=== PATIENT | male | born 1965 | race African-American/Black ===

== ENCOUNTER 2018-04-04 18:20 | Emergency (ER) | payer BC, SELFPAY ==
[2018-04-04 18:52] LABS: Absolute Lymphocytes (CBC) 1.9 K/uL (0.7-4.9); Absolute Monocytes 0.5 K/uL (0.1-1.3); Absolute Neutrophil 3.1 K/uL (1.8-8.0); Basophils % 0.7 % (0-1.3); Eosinophils % 1.1 % (0-4.4); Hematocrit 47.1 % (39.6-49.0); Lymphocytes % 34.5 % (15.3-44.8); MCH 29.7 pg (27.0-35.0); MCV 87.3 fL (80-100); MPV 9.1 fL (7.6-11.3); Monocytes % 8.7 % (3.3-12.3)
[2018-04-04 19:17] LABS: ALT/SGPT 55 U/L (12-78); AST/SGOT 34 U/L (15-37); Albumin 4.2 g/dL (3.4-5.0); Alkaline Phosphatase 38 U/L (45-117); BUN Blood Urea Nitrogen 13 mg/dL (7-18); Bicarbonate 27 mmol/L (21-32); Bilirubin Direct 0.2 mg/dL (0-0.2); Bilirubin Total 0.7 mg/dL (0.2-1.0); Glucose Level 121 mg/dL (74-106); Magnesium 2.1 mg/dL (1.8-2.4); NT PRO-BNP 12 pg/mL (<125); Potassium 3.6 mmol/L (3.5-5.1); Protein, Total 8.1 g/dL (6.4-8.2); Sodium Level 137 mmol/L (136-145); Troponin (Emerg Dept Use Only) < 0.02 ng/mL (0.0-0.045)
[2018-04-04 19:20] LABS: Protime INR 1.07
--- NOTE | 2018-04-04 19:35 | RAD REPORT ---
EXAM DESCRIPTION: Nino Single View04/04/2018 7:21 pm CLINICAL HISTORY: Chest pain COMPARISON: 2013 FINDINGS: The lungs appear clear of acute infiltrate. The heart is probably upper limits normal siz e IMPRESSION: No acute abnormalities displayed
[2018-04-04] MEDS ORDERED: NA CHLORIDE 0.9% 1,000 ML ONE (19:39)
[2018-04-04 19:55] LABS: Urine Bacteria <20 /HPF (NONE SEEN); Urine Culture Reflex Order NOT NEEDED; Urine RBC <5 /HPF (NONE SEEN)
[2018-04-04 20:27] LABS: Urine Blood NEGATIVE (NEG); Urine Glucose NEGATIVE (NEG); Urine Protein TRACE (NEG); Urine Specific Gravity >1.030 (1.005-1.030)
--- NOTE | 2018-04-04 22:18 | EDPHYS ---
Physician Documentation [facility] Name: Andrea Longo Jr Age: 53 yrs Sex: Male : 1965 Arrival Date: 04/04/2018 Time: 18:21 Bed 19 Private MD: ED Physician Amauri Henrandez HPI: 04/04 19:38 This 53 yrs old Black Male presents to ER via Wheelchair with complaints of Shortness snw Of Breath, Chest Pain. 19:38 The patient has shortness of breath at rest. Onset: The symptoms/episode began/occurred snw suddenly, 1 day(s) ago, and became persistent. Duration: The symptoms are intermittent. The patient's shortness of breath has no apparent modifying factors. Associated signs and symptoms: Pertinent positives: chest pain, non-productive cough, abdominal pain, dark urine, one episode of penile discharge. Severity of symptoms: At their worst the symptoms were moderate. It is unknown whether or not the patient has had similar symptoms in the past. The patient has not recently seen a physician, sees PCP in [place]. Historical: - Allergies: 18:29 No Known Allergies; sv - Home Meds: 18:29 Janumet oral oral [Active]; amlodipine/besylate [Active]; losartan potassium [Active]; sv metoprolol ER [Active]; atorvastatin oral oral [Active]; gabapentin oral oral [Active]; Glimepiride Oral [Active]; - PMHx: 18:29 Diabetes - NIDDM; High Cholesterol; Hypertension; sv - Immunization history:: Flu vaccine is up to date. - Social history:: Smoking status: Patient/guardian denies using tobacco. - Ebola Screening: : No symptoms or risks identified at this time. ROS: 19:36 Constitutional: Negative for fever, chills, and weight loss, Eyes: Negative for injury, snw pain, redness, and discharge, ENT: Negative for injury, pain, and discharge, Neck: Negative for injury, pain, and swelling. 19:36 Respiratory: Negative for shortness of breath, cough, wheezing, and pleuritic chest pain. 19:36 Back: Negative for injury and pain, : Negative for injury, bleeding, discharge, and swelling, dark urine noted today MS/Extremity: Negative for injury and deformity, Skin: Negative for injury, rash, and discoloration, Neuro: Negative for headache, weakness, numbness, tingling, and seizure. 19:36 Cardiovascular: Positive for chest pain. 19:36 Abdomen/GI: Positive for abdominal pain, last week. Exam: 19:23 Constitutional: This is a well developed, well nourished patient who is awake, alert, snw and in no acute distress. Head/Face: Normocephalic, atraumatic. Eyes: Pupils equal round and reactive to light, extra-ocular motions intact. Lids and lashes normal. Conjunctiva and sclera are non-icteric and not injected. Cornea within normal limits. Periorbital areas with no swelling, redness, or edema. ENT: Nares patent. No nasal discharge, no septal abnormalities noted. Tympanic membranes are normal and external auditory canals are clear. Oropharynx with no redness, swelling, or masses, exudates, or evidence of obstruction, uvula midline. Mucous membranes moist. Neck: Trachea midline, no thyromegaly or masses palpated, and no cervical lymphadenopathy. Supple, full range of motion without nuchal rigidity, or vertebral point tenderness. No Meningismus. Chest/axilla: Normal chest wall appearance and motion. Nontender with no deformity. No lesions are appreciated. Cardiovascular: Regular rate and rhythm with a normal S1 and S2. No gallops, murmurs, or rubs. Normal PMI, no JVD. No pulse deficits. Respiratory: Lungs have equal breath sounds bilaterally, clear to auscultation and percussion. No rales, rhonchi or wheezes noted. No increased work of breathing, no retractions or nasal flaring. Abdomen/GI: Soft, non-tender, with normal bowel sounds. No distension or tympany. No guarding or rebound. No evidence of tenderness throughout. Back: No spinal tenderness. No costovertebral tenderness. Full range of motion. Skin: Warm, dry with normal turgor. Normal color with no rashes, no lesions, and no evidence of cellulitis. MS/ Extremity: Pulses equal, no cyanosis. Neurovascular intact. Full, normal range of motion. Neuro: Awake and alert, GCS 15, oriented to person, place, time, and situation. Cranial nerves II-XII grossly intact. Motor strength 5/5 in all extremities. Sensory grossly intact. Cerebellar exam normal. Normal gait. Vital Signs: 18:22 BP 158 / 95; Pulse 86; Resp 20; Temp 97.8; Pulse Ox 97% ; Weight 120.2 kg; Height 6 ft. sv 1 in. (185.42 cm); Pain 6/10; 19:15 BP 145 / 93; Pulse 82; Resp 16; Temp 97.8(O); Pulse Ox 98% on R/A; Pain 0/10; ls4 20:19 BP 145 / 101; Pulse 81; Resp 16; Pulse Ox 99% on R/A; Pain 0/10; ls4 21:02 BP 143 / 86; Pulse 80; Resp 16; Pulse Ox 99% on R/A; Pain 0/10; ls4 21:53 BP 141 / 72; Pulse 66; Resp 16; Pulse Ox 98% on R/A; Pain 0/10; ls4 22:21 BP 139 / 79; Pulse 70; Resp 16; Temp 97.9(O); Pulse Ox 99% on R/A; Pain 0/10; ls4 18:22 Body Mass Index 34.96 (120.20 kg, 185.42 cm) sv MDM: 19:13 Patient medically screened. snw 22:18 Data reviewed: vital signs, nurses notes. Data interpreted: Pulse oximetry: on room air snw is 98 %. Interpretation: normal. Counseling: I had a detailed discussion with the patient and/or guardian regarding: the historical points, exam findings, and any diagnostic results supporting the discharge/admit diagnosis, the presence of at least one elevated blood pressure reading (>120/80) during this emergency department visit, lab results, radiology results, the need for outpatient follow up, to return to the emergency department if symptoms worsen or persist or if there are any questions or concerns that arise at home. Special discussion: Based on the history and exam findings, there is no indication for further emergent testing or inpatient evaluation. I discussed with the patient/guardian the need to see the primary care provider for further evaluation of the symptoms. 04/04 18:26 Order name: Basic Metabolic Panel; Complete Time: 19:20 gs 04/04 18:26 Order name: CBC with Diff; Complete Time: 19:20 gs 04/04 18:26 Order name: LFT's; Complete Time: 19:20 gs 04/04 18:26 Order name: Magnesium; Complete Time: 19:20 gs 04/04 18:26 Order name: NT PRO-BNP; Complete Time: 19:20 gs 04/04 18:26 Order name: PT-INR; Complete Time: 19:36 gs 04/04 18:26 Order name: Troponin (emerg Dept Use Only); Complete Time: 19:20 gs 04/04 18:26 Order name: XRAY Chest (1 view); Complete Time: 19:39 gs 04/04 19:21 Order name: Urine Culture snw 04/04 19:21 Order name: Urine Microscopic Only; Complete Time: 19:56 snw 04/04 19:40 Order name: Flu; Complete Time: 20:45 snw 04/04 19:55 Order name: Urine Dipstick--Ancillary (enter results); Complete Time: 20:35 ms 04/04 21:10 Order name: Troponin (emerg Dept Use Only): at 2200 snw 04/04 21:10 Order name: Troponin (Emerg Dept Use Only); Complete Time: 22:16 EDMS 04/04 18:26 Order name: EKG; Complete Time: 18:32 gs 04/04 18:26 Order name: Cardiac monitoring; Complete Time: 18:47 gs 04/04 18:26 Order name: EKG - Nurse/Tech; Complete Time: 18:32 gs 04/04 18:26 Order name: IV Saline Lock; Complete Time: 18:47 gs 04/04 18:26 Order name: Labs collected and sent; Complete Time: 18:47 gs 04/04 18:26 Order name: O2 Per Protocol; Complete Time: 18:47 gs 04/04 18:26 Order name: O2 Sat Monitoring; Complete Time: 18:47 gs 04/04 19:21 Order name: Urine Dipstick-Ancillary (obtain specimen); Complete Time: 19:33 snw 04/04 21:10 Order name: EKG - Nurse/Tech: at 2200; Complete Time: 22:01 snw 04/04 21:10 Order name: Repeat Cardiac Enzymes at: at 2200; Complete Time: 21:53 snw Administered Medications: 19:33 Drug: NS 0.9% 1000 ml Route: IV; Rate: 200 ml/hr; Site: right antecubital; ls4 22:22 Follow up: IV Status: Completed infusion; IV Intake: 600ml ls4 Disposition: 04/04/18 22:17 Discharged to Home. Impression: Cough, Chest pain, unspecified. - Condition is Stable. - Discharge Instructions: Nonspecific Chest Pain, Dehydration, Adult, Hypertension, Cough, Adult, [id number], Aspirin and Your Heart, Rehydration, Adult. - Prescriptions for Tessalon Perles 100 mg Oral Capsule - take 1 capsule by ORAL route every 8 hours As needed; 15 capsule. orphenadrine citrate 100 mg Oral Tablet Sustained Release - take 1 tablet by ORAL route 2 times per day As needed; 20 tablet. - Work release form, Medication Reconciliation Form, Thank You Letter, Antibiotic Education, Prescription Opioid Use form. - Follow up: Private Physician; When: 2 - 3 days; Reason: Recheck today's complaints, Continuance of care, Re-evaluation by your physician. Follow up: Emergency Department; When: As needed; Reason: Worsening of condition. Addendum: 04/06/2018 19:10 Co-signature as Attending Physician, Amauri Hernandez MD. g s Signatures: Dispatcher [employer] EDGilda Osman RN RN sv Yesica Foote, FLAT FINISHER-C FLAT FINISHER-Csnw Amauri Hernandez MD MD Kailyn Cabral RN RN ls4 Corrections: (The following items were deleted from the chart) 04/04 22:48 22:17 04/04/2018 22:17 Discharged to Home. Impression: Cough; Chest pain, unspecified. ls4 Condition is Stable. Forms are Medication Reconciliation Form, Thank You Letter, Antibiotic Education, Prescription Opioid Use. Follow up: Private Physician; When: 2 - 3 days; Reason: Recheck today's complaints, Continuance of care, Re-evaluation by your physician. Follow up: Emergency Department; When: As needed; Reason: Worsening of condition. snw
--- NOTE | 2018-04-04 22:18 | ER ---
Nurse's Notes [facility] Name: Andrea Longo Jr Age: 53 yrs Sex: Male : 1965 Arrival Date: 04/04/2018 Time: 18:21 Bed 19 Private MD: Diagnosis: Cough;Chest pain, unspecified Presentation: 04/04 18:22 Presenting complaint: Patient states: left sided chest pain, SOB and non productive sv cough x 1 day. Transition of care: patient was not received from another setting of care. Onset of symptoms was April 03, 2018. Care prior to arrival: None. 18:22 Method Of Arrival: Wheelchair sv 18:22 Acuity: PUJA 3 sv 19:02 Risk Assessment: Do you want to hurt yourself or someone else? Patient reports no ls4 desire to harm self or others. 19:02 Initial Sepsis Screen: Does the patient meet any 2 criteria? No. Patient's initial ls4 sepsis screen is negative. Does the patient have a suspected source of infection? No. Patient's initial sepsis screen is negative. Triage Assessment: 19:02 Respiratory: Onset: The symptoms/episode began/occurred gradually, the patient has mild ls4 shortness of breath. Historical: - Allergies: 18:29 No Known Allergies; sv - Home Meds: 18:29 Janumet oral oral [Active]; amlodipine/besylate [Active]; losartan potassium [Active]; sv metoprolol ER [Active]; atorvastatin oral oral [Active]; gabapentin oral oral [Active]; Glimepiride Oral [Active]; - PMHx: 18:29 Diabetes - NIDDM; High Cholesterol; Hypertension; sv - Immunization history:: Flu vaccine is up to date. - Social history:: Smoking status: Patient/guardian denies using tobacco. - Ebola Screening: : No symptoms or risks identified at this time. Screenin:33 Abuse screen: Denies threats or abuse. Denies injuries from another. Nutritional bp screening: No deficits noted. Tuberculosis screening: No symptoms or risk factors identified. Fall Risk None identified. Assessment: 18:32 General: Appears in no apparent distress. uncomfortable, obese, Behavior is bp cooperative, appropriate for age, anxious. Pain: Complains of pain in chest. Neuro: Level of Consciousness is awake, alert, obeys commands, Oriented to person, place, time, situation, Appropriate for age. Cardiovascular: Rhythm is sinus rhythm. Respiratory: Airway is patent Respiratory effort is even, unlabored, Breath sounds are clear bilaterally. GI: No signs and/or symptoms were reported involving the gastrointestinal system. : Reports discharge, from penis that is. EENT: No deficits noted. Derm: No deficits noted. Musculoskeletal: Circulation, motion, and sensation intact. Range of motion: intact in all extremities. 19:16 Reassessment: Patient appears in no apparent distress at this time. Patient and/or ls4 family updated on plan of care and expected duration. Pain level reassessed. Patient denies pain at this time. Patient states symptoms have improved. 21:01 Reassessment: Patient appears in no apparent distress at this time. Patient and/or ls4 family updated on plan of care and expected duration. Pain level reassessed. Patient is alert, oriented x 3, equal unlabored respirations, skin warm/dry/pink. 21:54 Reassessment: Patient appears in no apparent distress at this time. Patient and/or ls4 family updated on plan of care and expected duration. Pain level reassessed. Patient is alert, oriented x 3, equal unlabored respirations, skin warm/dry/pink. Patient states symptoms have improved. Vital Signs: 18:22 BP 158 / 95; Pulse 86; Resp 20; Temp 97.8; Pulse Ox 97% ; Weight 120.2 kg; Height 6 ft. sv 1 in. (185.42 cm); Pain 6/10; 19:15 BP 145 / 93; Pulse 82; Resp 16; Temp 97.8(O); Pulse Ox 98% on R/A; Pain 0/10; ls4 20:19 BP 145 / 101; Pulse 81; Resp 16; Pulse Ox 99% on R/A; Pain 0/10; ls4 21:02 BP 143 / 86; Pulse 80; Resp 16; Pulse Ox 99% on R/A; Pain 0/10; ls4 21:53 BP 141 / 72; Pulse 66; Resp 16; Pulse Ox 98% on R/A; Pain 0/10; ls4 22:21 BP 139 / 79; Pulse 70; Resp 16; Temp 97.9(O); Pulse Ox 99% on R/A; Pain 0/10; ls4 18:22 Body Mass Index 34.96 (120.20 kg, 185.42 cm) sv ED Course: 18:21 Patient arrived in ED. mr 18:22 Arm band placed on Patient placed in an exam room, on a stretcher, on pulse oximetry. sv 18:28 Triage completed. sv 18:29 Eris Stephen, RN is Primary Nurse. bp 18:33 Patient has correct armband on for positive identification. Bed in low position. Call bp light in reach. Side rails up X2. 18:43 EKG done, reviewed by Vicente Win MD. gm 18:45 Inserted saline lock: 20 gauge in right hand, using aseptic technique. bp 18:46 Yesica Foote FNP-C is PHCP. snw 18:46 Amauri Hernandez MD is Attending Physician. snw 19:01 No provider procedures requiring assistance completed. ls4 19:22 XRAY Chest (1 view) In Process Unspecified. EDMS 21:53 Troponin (emerg Dept Use Only): at 2200 Sent. ls4 22:02 EKG done, by ED staff. ls4 22:42 IV discontinued, intact, bleeding controlled, No redness/swelling at site. ls4 Administered Medications: 19:33 Drug: NS 0.9% 1000 ml Route: IV; Rate: 200 ml/hr; Site: right antecubital; ls4 22:22 Follow up: IV Status: Completed infusion; IV Intake: 600ml ls4 Intake: 22:22 IV: 600ml; Total: 600ml. ls4 Outcome: 19:02 Condition: stable ls4 22:17 Discharge ordered by MD. snw 22:42 Discharged to home ambulatory. ls4 22:42 Discharge instructions given to family, Instructed on discharge instructions, follow up ls4 and referral plans. medication usage, Demonstrated understanding of instructions, follow-up care, medications. 22:48 Patient left the ED. ls4 Signatures: Dispatcher [employer] EDMS Gilda Cutler RN RN Yesica Foote FNP-C FNP-José Antoniow Sean Mirta mr Eris Stephen, RN RN Kailyn Yanez RN RN ls4 Bobbi Guardado
[2018-04-04 23:19] VITALS: BP 139/79; TEMP 97.9; O2SAT 99
--- NOTE | 2018-04-05 08:04 | EKG ---
Test Date: 2018-04-04 Test Time: 21:59:22 [place] Alarm Mechanic: NATHANAEL MEASUREMENT RESULTS: Intervals: Rate: 67 NH: 186 QRSD: 82 QT: 414 QTc: 437 [place]: P: 61 NH: 186 QRS: 39 T: -18 INTERPRETIVE STATEMENTS: Normal sinus rhythm Nonspecific ST and T wave abnormality Abnormal ECG Compared to ECG 03/13/2014 18:20:44 No significant changes Electronically Signed On 04-05-18 08:03:45 DATA SERVICES DEVELOPER by Mikhail Emmanuel
--- NOTE | 2018-04-05 10:15 | EKG ---
Test Date: 2018-04-04 Test Time: 18:33:19 [employer]: TRENT MEASUREMENT RESULTS: Intervals: Rate: 74 VA: 168 QRSD: 88 QT: 402 QTc: 446 [place]: P: 67 VA: 168 QRS: 51 T: -1 INTERPRETIVE STATEMENTS: Normal sinus rhythm Possible Left atrial enlargement Nonspecific T wave abnormality Abnormal ECG Compared to ECG 03/13/2014 18:20:44 T-wave abnormality now present ST (T wave) deviation no longer present Electronically Signed On 04-05-18 10:15:06 HEAD OF PRECISION TARGETING by Mikhail Emmanuel
== END 2018-04-04 22:48 | disposition home or self-care (01) ==
LOC: ER 18:20
DX: R07.9 Chest pain, unspecified (principal); R05 Cough; R94.31 Abnormal electrocardiogram [ECG] [EKG]; E11.9 Type 2 diabetes mellitus without complications; E78.00 Pure hypercholesterolemia, unspecified; I10 Essential (primary) hypertension; Z79.84 Long term (current) use of oral hypoglycemic drugs; Z79.899 Other long term (current) drug therapy
CPT/HCPCS: 36415; 71045; 80048; 80076; 81003; 81015; 83735; 83880; 84484; 85025; 85610; 87086; 87088; 87804; 93005; 96360; 96361; 99285; J7030

== ENCOUNTER 2018-12-13 02:34 | Emergency (ER) | payer BC ==
[2018-12-13] MEDS ORDERED: HYDROCODONE/APAP 10/325 TAB ONE (03:11)
[2018-12-13 03:17] LABS: Absolute Lymphocytes (CBC) 1.4 K/uL (0.7-4.9); Basophils % 0.5 % (0-1.3); Hematocrit 44.8 % (39.6-49.0); Lymphocytes % 18.2 % (15.3-44.8); RBC Red Blood Cell Count 5.25 M/uL (4.33-5.43)
[2018-12-13 03:30] LABS: BUN Blood Urea Nitrogen 16 mg/dL (7-18); Bicarbonate 27 mmol/L (21-32); Glucose Level 154 mg/dL (74-106); Potassium 3.9 mmol/L (3.5-5.1); Sodium Level 140 mmol/L (136-145); Troponin (Emerg Dept Use Only) < 0.02 ng/mL (0.0-0.045)
[2018-12-13] MEDS ORDERED: ONDANSETRON 4 MG/2 ML VIAL ONE (03:38)
[2018-12-13] MEDS ORDERED: FENTANYL CITR 100 MCG/2 ML ONE (03:40)
[2018-12-13 03:59] LABS: Lipase 185 U/L (73-393)
[2018-12-13] MEDS ORDERED: KETOROLAC 30 MG/ML INJ ONE (04:12)
[2018-12-13] MEDS ORDERED: MAGNE/ALUM HYDROXD 30 ML UCUP ONE (04:40)
--- NOTE | 2018-12-13 04:43 | EDPHYS ---
Physician Documentation [facility] Name: Andrea Longo Jr Age: 53 yrs Sex: Male : 1965 Arrival Date: 12/13/2018 Time: 02:36 Bed 5 Private MD: ED Physician Amauri Hernandez HPI: 12/13 04:25 This 53 yrs old Black Male presents to ER via Ambulatory with complaints of Chest Pain. 04:25 The patient or guardian reports chest pain that is located primarily in the substernal gs area, epigastric area. Onset: gradually, 1 week(s) ago. The pain radiates to the left shoulder. Associated signs and symptoms: Pertinent negatives: diaphoresis. The chest pain is described as sharp. Duration: The patient or guardian reports multiple episodes, that are intermittent, that wax and wane. Modifying factors: the symptoms are aggravated by deep breath. Severity of pain: At its worst the pain was moderate in the emergency department the pain is unchanged. The patient has experienced similar episodes in the past, a few times. The patient has been recently seen by a physician: the patient's primary care provider, 5 day(s) ago, with similar presenting complaints. Historical: - Allergies: 02:45 No Known Allergies; rr5 - Home Meds: 02:53 Janumet 50-1,000 mg oral tab 1 tab 2 times per day [Active]; amlodipine 10 mg tab 1 tab rr5 once daily [Active]; losartan 100 mg oral tab 1 tab once daily [Active]; metoprolol ER 50 mg every 24 hours [Active]; atorvastatin 40 mg oral tab 1 tab once daily [Active]; gabapentin 300 mg oral cap 1 cap 3 times per day [Active]; glimepiride 2 mg Oral tab 1 tab twice a day [Active]; 04:02 clonidine HCl Oral [Active]; rr5 - PMHx: 02:45 Diabetes - NIDDM; High Cholesterol; Hypertension; rr5 - PSHx: 02:45 Hernia repair; rr5 - Immunization history:: Adult Immunizations up to date. - Social history:: Smoking status: Patient/guardian denies using tobacco, Patient uses alcohol, occasionally. Patient/guardian denies using street drugs. - Ebola Screening: : Patient negative for fever greater than or equal to 101.5 degrees Fahrenheit, and additional compatible Ebola Virus Disease symptoms Patient denies exposure to infectious person Patient denies travel to an Ebola-affected area in the 21 days before illness onset. ROS: 04:25 All other systems are negative. gs Exam: 04:25 Head/Face: Normocephalic, atraumatic. Eyes: Pupils equal round and reactive to light, gs extra-ocular motions intact. Lids and lashes normal. Conjunctiva and sclera are non-icteric and not injected. Cornea within normal limits. Periorbital areas with no swelling, redness, or edema. ENT: Nares patent. No nasal discharge, no septal abnormalities noted. Tympanic membranes are normal and external auditory canals are clear. Oropharynx with no redness, swelling, or masses, exudates, or evidence of obstruction, uvula midline. Mucous membranes moist. Neck: Trachea midline, no thyromegaly or masses palpated, and no cervical lymphadenopathy. Supple, full range of motion without nuchal rigidity, or vertebral point tenderness. No Meningismus. Chest/axilla: Normal chest wall appearance and motion. Nontender with no deformity. No lesions are appreciated. Cardiovascular: Regular rate and rhythm with a normal S1 and S2. No gallops, murmurs, or rubs. Normal PMI, no JVD. No pulse deficits. Respiratory: Lungs have equal breath sounds bilaterally, clear to auscultation and percussion. No rales, rhonchi or wheezes noted. No increased work of breathing, no retractions or nasal flaring. Abdomen/GI: Soft, non-tender, with normal bowel sounds. No distension or tympany. No guarding or rebound. No evidence of tenderness throughout. Back: No spinal tenderness. No costovertebral tenderness. Full range of motion. Skin: Warm, dry with normal turgor. Normal color with no rashes, no lesions, and no evidence of cellulitis. MS/ Extremity: Pulses equal, no cyanosis. Neurovascular intact. Full, normal range of motion. Neuro: Awake and alert, GCS 15, oriented to person, place, time, and situation. Cranial nerves II-XII grossly intact. Motor strength 5/5 in all extremities. Sensory grossly intact. Cerebellar exam normal. Normal gait. 04:25 Constitutional: The patient appears alert, awake. 04:25 Cardiovascular: Edema: 1+ edema to level of left ankle and right ankle. 04:25 ECG was reviewed by the Attending Physician. Vital Signs: 02:45 BP 166 / 95; Pulse 91; Resp 18; Temp 98.4; Pulse Ox 96% ; Weight 123.38 kg; Height 6 rr5 ft. 1 in. (185.42 cm); Pain 9/10; 02:59 BP 147 / 96; Pulse 87; Resp 17; Pulse Ox 97% ; rr5 03:17 BP 126 / 78; Pulse 77; Resp 19; Pulse Ox 98% on 2 lpm NC; rr5 04:00 BP 126 / 76; Pulse 79; Resp 18; Pulse Ox 98% ; rr5 04:44 BP 122 / 76; Pulse 85; Resp 16; Pulse Ox 98% on R/A; rr5 05:10 BP 136 / 84; Pulse 79; Resp 17; Temp 98; Pulse Ox 97% ; rr5 02:45 Body Mass Index 35.89 (123.38 kg, 185.42 cm) rr5 MDM: 02:48 Patient medically screened. 04:25 Differential diagnosis: acute myocardial infarction, coronary artery disease gs pancreatitis, pleurisy, pulmonary embolus. HEART Score: History: Slightly Suspicious (0), ECG: Normal (0), Age: > 45 and < 65 years (1), Risk Factors: > or = 3 Risk factors for atherosclerotic disease (2), Troponin: < or = 1 x Normal Limit (0). Data reviewed: vital signs, nurses notes. Counseling: I had a detailed discussion with the patient and/or guardian regarding: the historical points, exam findings, and any diagnostic results supporting the discharge/admit diagnosis, the need for outpatient follow up. 12/13 02:49 Order name: Basic Metabolic Panel; Complete Time: 04:00 12/13 02:49 Order name: CBC with Diff; Complete Time: 03:57 12/13 02:49 Order name: Troponin (emerg Dept Use Only); Complete Time: 04:00 12/13 02:54 Order name: D-Dimer; Complete Time: 03:57 12/13 03:53 Order name: Lipase; Complete Time: 04:00 EDMS 12/13 02:49 Order name: XRAY Chest (1 view) 12/13 02:49 Order name: EKG; Complete Time: 02:51 08/14 02:49 Order name: Cardiac monitoring; Complete Time: 02:50 gs 12/13 02:49 Order name: EKG - Nurse/Tech; Complete Time: 02:50 gs 12/13 02:49 Order name: IV Saline Lock; Complete Time: 02:50 gs 12/13 02:49 Order name: Labs collected and sent; Complete Time: 02:50 gs 12/13 02:49 Order name: O2 Per Protocol; Complete Time: 02:50 gs 12/13 02:49 Order name: O2 Sat Monitoring; Complete Time: 02:50 gs EC:25 Rate is 82 beats/min. Rhythm is regular. NM interval is normal. QRS interval is normal. gs QT interval is normal. T waves are Normal. No ST changes noted. Clinical impression: NSR w/ Non-specific ST/T Changes. Interpreted by me. Administered Medications: 03:16 Drug: [place] 10 mg-325 mg 1 tabs Route: PO; rr5 03:40 Follow up: Response: No adverse reaction; RASS: Alert and Calm (0) rr5 03:45 Drug: Zofran 4 mg Route: IVP; Site: right antecubital; rr5 04:43 Follow up: Response: No adverse reaction rr5 03:47 Drug: fentaNYL (PF) 50 mcg {Note: RASS 0.} Route: IVP; Site: right antecubital; rr5 04:43 Follow up: Response: No change in condition; RASS: Alert and Calm (0) rr5 04:17 Drug: TORadol - Ketorolac 15 mg Route: IVP; Site: right antecubital; ao 05:03 Follow up: Response: No adverse reaction rr5 04:43 Drug: Maalox Suspension (200 mg-200 mg-20 mg/5 mL) 30 ml Route: PO; rr5 05:14 Follow up: Response: No adverse reaction rr5 Disposition: 12/13/18 04:41 Discharged to Home. Impression: Chest pain on breathing. - Condition is Stable. - Discharge Instructions: Nonspecific Chest Pain. - Prescriptions for Pepcid 20 mg Oral Tablet - take 1 tablet by ORAL route every 12 hours for 10 days; 20 tablet. - Medication Reconciliation Form, Thank You Letter, Antibiotic Education, Prescription Opioid Use form. - Follow up: Private Physician; When: 2 - 3 days; Reason: Re-evaluation by your physician. Signatures: Dispatcher [employer] [facility] Eduar Damon RN RN Amauri Avila MD MD gs Roque, Raymond, RN RN rr5 Corrections: (The following items were deleted from the chart) 03:53 03:40 LIPASE+C.LAB.BRZ ordered. [facility] 05:14 04:41 12/13/2018 04:41 Discharged to Home. Impression: Chest pain on breathing. rr5 Condition is Stable. Forms are Medication Reconciliation Form, Thank You Letter, Antibiotic Education, Prescription Opioid Use. Follow up: Private Physician; When: 2 - 3 days; Reason: Re-evaluation by your physician. gs
--- NOTE | 2018-12-13 04:43 | ER ---
Nurse's Notes [facility] Name: Andrea Longo Jr Age: 53 yrs Sex: Male : 1965 Arrival Date: 12/13/2018 Time: 02:36 Bed 5 Private MD: Diagnosis: Chest pain on breathing Presentation: 12/13 02:40 Presenting complaint: Patient states: sudden chest pain started 0000H more worse when I rr5 am breathing in.numbness on left shoulder before i sleep and headache. pain score 9/10. denies cough or colds. Transition of care: patient was not received from another setting of care. Onset of symptoms was December 13, 2018 at 00:00. Risk Assessment: Do you want to hurt yourself or someone else? Patient reports no desire to harm self or others. Initial Sepsis Screen: Does the patient meet any 2 criteria? No. Patient's initial sepsis screen is negative. Does the patient have a suspected source of infection? No. Patient's initial sepsis screen is negative. Care prior to arrival: None. 02:40 Method Of Arrival: Ambulatory rr5 02:40 Acuity: PUJA 3 rr5 Historical: - Allergies: 02:45 No Known Allergies; rr5 - Home Meds: 02:53 Janumet 50-1,000 mg oral tab 1 tab 2 times per day [Active]; amlodipine 10 mg tab 1 tab rr5 once daily [Active]; losartan 100 mg oral tab 1 tab once daily [Active]; metoprolol ER 50 mg every 24 hours [Active]; atorvastatin 40 mg oral tab 1 tab once daily [Active]; gabapentin 300 mg oral cap 1 cap 3 times per day [Active]; glimepiride 2 mg Oral tab 1 tab twice a day [Active]; 04:02 clonidine HCl Oral [Active]; rr5 - PMHx: 02:45 Diabetes - NIDDM; High Cholesterol; Hypertension; rr5 - PSHx: 02:45 Hernia repair; rr5 - Immunization history:: Adult Immunizations up to date. - Social history:: Smoking status: Patient/guardian denies using tobacco, Patient uses alcohol, occasionally. Patient/guardian denies using street drugs. - Ebola Screening: : Patient negative for fever greater than or equal to 101.5 degrees Fahrenheit, and additional compatible Ebola Virus Disease symptoms Patient denies exposure to infectious person Patient denies travel to an Ebola-affected area in the 21 days before illness onset. Screenin:46 Abuse screen: Denies threats or abuse. Denies injuries from another. Nutritional rr5 screening: No deficits noted. Tuberculosis screening: No symptoms or risk factors identified. Fall Risk IV access (20 points). Total Salcedo Fall Scale indicates No Risk (0-24 pts). Assessment: 02:45 General: Appears in no apparent distress. uncomfortable, Behavior is calm, cooperative, rr5 appropriate for age. Pain: Complains of pain in chest Pain radiates to left arm Pain currently is 9 out of 10 on a pain scale. Quality of pain is described as aching, numb, Pain began 3 hours ago. Is intermittent. Neuro: Level of Consciousness is awake, alert, obeys commands, Oriented to person, place, time, situation, Appropriate for age. Cardiovascular: Reports chest pain, Capillary refill < 3 seconds Patient's skin is warm and dry. Respiratory: Airway is patent Respiratory effort is even, unlabored, Respiratory pattern is regular, symmetrical, Denies cough. GI: No signs and/or symptoms were reported involving the gastrointestinal system. : No signs and/or symptoms were reported regarding the genitourinary system. EENT: No signs and/or symptoms were reported regarding the EENT system. Derm: Skin is intact, Skin temperature is warm. Musculoskeletal: Circulation, motion, and sensation intact. Capillary refill < 3 seconds. 03:40 GI: Pt is actively vomiting undigested food, and complaining of chest pain.ED provider rr5 aware with order made and carried out. 04:40 Reassessment: Patient appears in no apparent distress at this time. ED provider rr5 informed with order made and carried out. Patient states symptoms have not improved. 05:11 Reassessment: Patient appears in no apparent distress at this time. Patient is alert, rr5 oriented x 3, equal unlabored respirations, skin warm/dry/pink. discharge instruction given and explained, verbalized understanding. vitally stable. Vital Signs: 02:45 BP 166 / 95; Pulse 91; Resp 18; Temp 98.4; Pulse Ox 96% ; Weight 123.38 kg; Height 6 rr5 ft. 1 in. (185.42 cm); Pain 9/10; 02:59 BP 147 / 96; Pulse 87; Resp 17; Pulse Ox 97% ; rr5 03:17 BP 126 / 78; Pulse 77; Resp 19; Pulse Ox 98% on 2 lpm NC; rr5 04:00 BP 126 / 76; Pulse 79; Resp 18; Pulse Ox 98% ; rr5 04:44 BP 122 / 76; Pulse 85; Resp 16; Pulse Ox 98% on R/A; rr5 05:10 BP 136 / 84; Pulse 79; Resp 17; Temp 98; Pulse Ox 97% ; rr5 02:45 Body Mass Index 35.89 (123.38 kg, 185.42 cm) rr5 ED Course: 02:36 Patient arrived in ED. ds1 02:40 Adama Merritt, [employer] is Primary Nurse. rr5 02:44 Triage completed. rr5 02:45 Amauri Hernandez MD is Attending Physician. gs 02:46 Arm band placed on right wrist. rr5 02:46 EKG completed in triage. Results shown to MD. rr5 02:46 Patient has correct armband on for positive identification. Placed in gown. Bed in low rr5 position. Call light in reach. Side rails up X2. threat monitoring analyst on. Pulse ox on. NIBP on. Warm blanket given. 02:46 Patient maintains SpO2 saturation greater than 95% on room air. rr5 02:50 Inserted saline lock: 18 gauge in right antecubital area, using aseptic technique. ao Blood collected. 02:59 X-ray completed. Portable x-ray completed in exam room. Patient tolerated procedure kw well. 03:00 XRAY Chest (1 view) In Process Unspecified. EDMS 05:13 No provider procedures requiring assistance completed. IV discontinued, intact, rr5 bleeding controlled, No redness/swelling at site. Pressure dressing applied. Administered Medications: 03:16 Drug: [place] 10 mg-325 mg 1 tabs Route: PO; rr5 03:40 Follow up: Response: No adverse reaction; RASS: Alert and Calm (0) rr5 03:45 Drug: Zofran 4 mg Route: IVP; Site: right antecubital; rr5 04:43 Follow up: Response: No adverse reaction rr5 03:47 Drug: fentaNYL (PF) 50 mcg {Note: RASS 0.} Route: IVP; Site: right antecubital; rr5 04:43 Follow up: Response: No change in condition; RASS: Alert and Calm (0) rr5 04:17 Drug: TORadol - Ketorolac 15 mg Route: IVP; Site: right antecubital; ao 05:03 Follow up: Response: No adverse reaction rr5 04:43 Drug: Maalox Suspension (200 mg-200 mg-20 mg/5 mL) 30 ml Route: PO; rr5 05:14 Follow up: Response: No adverse reaction rr5 Output: 03:40 Gastric: 250ml (Emesis); Total: 250ml. rr5 Outcome: 04:41 Discharge ordered by . pierre 05:13 Discharged to home ambulatory, with family. rr5 05:13 Condition: stable 05:13 Discharge instructions given to patient, Instructed on discharge instructions, follow up and referral plans. medication usage, Demonstrated understanding of instructions, follow-up care, medications, Prescriptions given X 1. 05:14 Patient left the ED. rr5 Signatures: Dispatcher [employer] [facility] Rosa Strange ds1 Sarah Thomas Alex, Amauri Carrillo RN, MD MD gs Roque, Raymond, RN RN rr5
[2018-12-13 05:37] VITALS: BP 136/84; TEMP 98; O2SAT 97
--- NOTE | 2018-12-13 08:23 | RAD REPORT ---
EXAM DESCRIPTION: RAD - Chest Single View - 12/13/2018 3:02 am CLINICAL HISTORY: CHEST PAIN Chest pain. COMPARISON: Chest Single View dated 04/04/2018; CHEST SINGLE VIEW dated 03/13/2014 FINDINGS: Portable technique limits examination quality. Mild interstitial pulmonary edema. The heart is mildly enlarged in size. No displaced fractures. IMPRESSION: Mild CHF.
--- NOTE | 2018-12-13 09:48 | EKG ---
Test Date: 2018-12-13 Test Time: 02:42:21 Registered Public Surveyor: NATHANAEL MEASUREMENT RESULTS: Intervals: Rate: 82 SC: 180 QRSD: 78 QT: 360 QTc: 420 [place]: P: -3 SC: 180 QRS: 10 T: 45 INTERPRETIVE STATEMENTS: Normal sinus rhythm Normal ECG Compared to ECG 04/04/2018 21:59:22 ST (T wave) deviation no longer present Electronically Signed On 12-13-18 09:47:06 CDT by Mikhail Emmanuel
== END 2018-12-13 05:14 | disposition home or self-care (01) ==
LOC: ER 02:34
DX: R07.1 Chest pain on breathing (principal); I10 Essential (primary) hypertension; E11.9 Type 2 diabetes mellitus without complications; E78.00 Pure hypercholesterolemia, unspecified
CPT/HCPCS: 93005; 85025; 80048; 36415; 85379; 84484; 83690; 71045; J3010; J2405

== ENCOUNTER 2020-07-06 20:11 | Emergency (ER) | payer BC, OTHER ==
--- NOTE | 2020-07-06 22:38 | EDPHYS ---
Physician Documentation [facility] Name: Andrea Longo Jr Age: 55 yrs Sex: Male : 1965 Arrival Date: 07/06/2020 Time: 20:17 Bed 15 Private MD: ED Physician Jose Recio HPI: 07/06 22:38 This 55 yrs old Black Male presents to ER via Ambulatory with complaints of Boil. kb 22:38 The patient presents with an abscess of the left inner thigh. Description: draining, kb erythematous, swollen, warm. Onset: The symptoms/episode began/occurred 3 day(s) ago. Severity of symptoms: At their worst the symptoms were moderate, in the emergency department the symptoms are unchanged. 22:39 Possible cause(s): unknown. Associated signs and symptoms: Pertinent positives: kb drainage, erythema, swelling. Modifying factors: the symptoms are alleviated by nothing, the symptoms are aggravated by pressure, touching. The patient has not experienced similar symptoms in the past. The patient has not recently seen a physician. Pt reports he's had an abscess for a couple of days that busted today. . Historical: - Allergies: 21:19 No Known Allergies; iw - Home Meds: 21:19 amlodipine 10 mg tab 1 tab once daily [Active]; glimepiride 2 mg Oral tab 1 tab twice a iw day [Active]; metformin 500 mg Oral tab 1 tab 2 times per day [Active]; gabapentin 300 mg Oral cap 1 cap 3 times per day [Active]; atorvastatin 20 mg oral tab once daily [Active]; losartan 100 mg Oral tab 1 tab once daily [Active]; clonidine HCl 0.2 mg oral tab 2 times per day [Active]; - PMHx: 21:19 Diabetes - NIDDM; High Cholesterol; Hypertension; iw - PSHx: 21:19 Hernia repair; iw - Immunization history:: Adult Immunizations Flu vaccine is not up to date. - Social history:: Smoking status: Patient denies any tobacco usage or history of. ROS: 22:36 Constitutional: Negative for fever, chills, and weight loss, Cardiovascular: Negative kb for chest pain, palpitations, and edema, Respiratory: Negative for shortness of breath, cough, wheezing, and pleuritic chest pain, Abdomen/GI: Negative for abdominal pain, nausea, vomiting, diarrhea, and constipation, MS/Extremity: Negative for injury and deformity, Neuro: Negative for headache, weakness, numbness, tingling, and seizure. 22:36 Skin: Positive for abscess, of the left inner thigh. Exam: 22:36 Constitutional: This is a well developed, well nourished patient who is awake, alert, kb and in no acute distress. MS/ Extremity: Pulses equal, no cyanosis. Neurovascular intact. Full, normal range of motion. Neuro: Awake and alert, GCS 15, oriented to person, place, time, and situation. Cranial nerves II-XII grossly intact. Moves all extremities. Sensory grossly intact. Cerebellar exam normal. Normal gait. 22:36 Respiratory: the patient does not display signs of respiratory distress, Respirations: normal. 22:36 Skin: abscess, that is moderate sized, of the left inner thigh, with drainage, that is bloody, that is serosanguinous, with induration, with surrounding cellulitis, that is mild. Vital Signs: 21:16 BP 146 / 82; Pulse 84; Resp 16; Temp 97.9; Pulse Ox 95% on R/A; Weight 113.4 kg; Height iw 6 ft. 1 in. (185.42 cm); Pain 5/10; 21:16 Body Mass Index 32.98 (113.40 kg, 185.42 cm) iw MDM: 22:03 Patient medically screened. kb 22:19 Data reviewed: vital signs, nurses notes. Data interpreted: Pulse oximetry: on room air kb is 95 %. Interpretation: normal. Counseling: I had a detailed discussion with the patient and/or guardian regarding: the historical points, exam findings, and any diagnostic results supporting the discharge/admit diagnosis, the need for outpatient follow up, a family practitioner, a general surgeon, to return to the emergency department if symptoms worsen or persist or if there are any questions or concerns that arise at home. 22:40 ED course: abscess draining already, I was able to express more purulent drainage kb without making incision. Administered Medications: 22:37 Drug: KeFLEX 500 mg Route: PO; mg2 22:37 Follow up: Response: No adverse reaction; Medication administered at discharge. mg2 22:37 Drug: Bactrim (160 mg-800 mg (DS) 1 tablet Route: PO; mg2 22:37 Follow up: Response: No adverse reaction; Medication administered at discharge. mg2 Disposition: 07/07 05:55 Co-signature as Attending Physician, Jose Recio MD. [email or web address] Disposition: 07/06/20 22:37 Discharged to Home. Impression: Cutaneous abscess of left lower limb. - Condition is Stable. - Discharge Instructions: Skin Abscess, [id number]. - Prescriptions for Keflex 500 mg Oral Capsule - take 1 capsule by ORAL route every 8 hours for 10 days; 30 capsule. Bactrim DS 800- 160 mg Oral Tablet - take 1 tablet by ORAL route every 12 hours for 10 days; 20 tablet. - Medication Reconciliation Form, Thank You Letter, Antibiotic Education, Prescription Opioid Use form. - Follow up: Emergency Department; When: As needed; Reason: Worsening of condition. Follow up: Private Physician; When: 2 - 3 days; Reason: Recheck today's complaints, Continuance of care, Re-evaluation by your physician. Signatures: Anna Diaz, LIZBET-C LIZBET-Shanelle Lau RN RN Issac Barkley RN RN [facility] [place] Jose Recio MD MD [facility] Corrections: (The following items were deleted from the chart) 07/06 22:44 22:37 07/06/2020 22:37 Discharged to Home. Impression: Cutaneous abscess of left lower mg2 limb. Condition is Stable. Forms are Medication Reconciliation Form, Thank You Letter, Antibiotic Education, Prescription Opioid Use. Follow up: Emergency Department; When: As needed; Reason: Worsening of condition. Follow up: Private Physician; When: 2 - 3 days; Reason: Recheck today's complaints, Continuance of care, Re-evaluation by your physician. kb
--- NOTE | 2020-07-06 22:38 | ER ---
Nurse's Notes [facility] Name: Andrea oLngo Jr Age: 55 yrs Sex: Male : 1965 Arrival Date: 07/06/2020 Time: 20:17 Bed 15 Private MD: Diagnosis: Cutaneous abscess of left lower limb Presentation: 07/06 21:16 Chief complaint: Patient states: had and abscess to left groin and it busted today and iw it was purple and red. Coronavirus screen: At this time, the client does not indicate any symptoms associated with coronavirus-19. Ebola Screen: Patient negative for fever greater than or equal to 101.5 degrees Fahrenheit, and additional compatible Ebola Virus Disease symptoms Patient denies exposure to infectious person. Patient denies travel to an Ebola-affected area in the 21 days before illness onset. No symptoms or risks identified at this time. Initial Sepsis Screen: Does the patient meet any 2 criteria? No. Patient's initial sepsis screen is negative. Does the patient have a suspected source of infection? No. Patient's initial sepsis screen is negative. Risk Assessment: Do you want to hurt yourself or someone else? Patient reports no desire to harm self or others. Onset of symptoms was July 02, 2020. 21:16 Method Of Arrival: Ambulatory iw 21:16 Acuity: PUJA 3 iw Triage Assessment: 22:10 General: Appears in no apparent distress. comfortable, Behavior is calm, cooperative. mg2 Historical: - Allergies: 21:19 No Known Allergies; iw - Home Meds: 21:19 amlodipine 10 mg tab 1 tab once daily [Active]; glimepiride 2 mg Oral tab 1 tab twice a iw day [Active]; metformin 500 mg Oral tab 1 tab 2 times per day [Active]; gabapentin 300 mg Oral cap 1 cap 3 times per day [Active]; atorvastatin 20 mg oral tab once daily [Active]; losartan 100 mg Oral tab 1 tab once daily [Active]; clonidine HCl 0.2 mg oral tab 2 times per day [Active]; - PMHx: 21:19 Diabetes - NIDDM; High Cholesterol; Hypertension; iw - PSHx: 21:19 Hernia repair; iw - Immunization history:: Adult Immunizations Flu vaccine is not up to date. - Social history:: Smoking status: Patient denies any tobacco usage or history of. Screenin:00 Abuse screen: Denies threats or abuse. Denies injuries from another. Nutritional mg2 screening: No deficits noted. Tuberculosis screening: No symptoms or risk factors identified. Fall Risk None identified. Assessment: 22:00 General: Appears in no apparent distress. comfortable. Pain: Complains of pain in left mg2 inner thigh. Neuro: Level of Consciousness is awake, alert, obeys commands, Oriented to person, place, time, situation. Cardiovascular: Capillary refill < 3 seconds Patient's skin is warm and dry. Respiratory: Airway is patent Respiratory effort is even, unlabored, Respiratory pattern is regular, symmetrical. GI: No signs and/or symptoms were reported involving the gastrointestinal system. : No signs and/or symptoms were reported regarding the genitourinary system. EENT: No signs and/or symptoms were reported regarding the EENT system. Derm: Abscess located on left inner thigh is nickel sized, has purulent drainage. Musculoskeletal: Circulation, motion, and sensation intact. Capillary refill < 3 seconds. Vital Signs: 21:16 BP 146 / 82; Pulse 84; Resp 16; Temp 97.9; Pulse Ox 95% on R/A; Weight 113.4 kg; Height iw 6 ft. 1 in. (185.42 cm); Pain 5/10; 21:16 Body Mass Index 32.98 (113.40 kg, 185.42 cm) iw ED Course: 20:17 Patient arrived in ED. es 21:17 Triage completed. iw 21:19 Arm band placed on. iw 21:30 [facility] kb 21:30 Jose Recio MD is Attending Physician. kb 22:00 Patient has correct armband on for positive identification. mg2 22:00 No provider procedures requiring assistance completed. Patient did not have IV access mg2 during this emergency room visit. Dressings: 4X4s X 1; left inner thigh. 22:10 Issac Barkley RN is Primary Nurse. mg2 Administered Medications: 22:37 Drug: KeFLEX 500 mg Route: PO; mg2 22:37 Follow up: Response: No adverse reaction; Medication administered at discharge. mg2 22:37 Drug: Bactrim (160 mg-800 mg (DS) 1 tablet Route: PO; mg2 22:37 Follow up: Response: No adverse reaction; Medication administered at discharge. mg2 Outcome: 22:37 Discharge ordered by . aurea 22:44 Discharged to home ambulatory. mg2 22:44 Condition: stable 22:44 Discharge instructions given to patient, Instructed on discharge instructions, follow up and referral plans. medication usage, Demonstrated understanding of instructions, follow-up care, medications, Prescriptions given X 2. 22:44 Patient left the ED. mg2 Signatures: Anna Diaz, CROP OR GRAIN FARM[employer]ER-C CROP OR GRAIN FARMWORKER-CkAmrita Elizondo Irene RN NATO iw Issac Barkley RN RN mg2
[2020-07-06] MEDS ORDERED: SMZ./TMP. 800/160 MG TABLET ONE (22:51)
[2020-07-06] MEDS ORDERED: CEPHALEXIN 250 MG CAP ONE (22:51)
[2020-07-07 00:19] VITALS: BP 146/82; TEMP 97.9; O2SAT 95
== END 2020-07-06 22:44 | disposition home or self-care (01) ==
LOC: ER 20:11
DX: L02.416 Cutaneous abscess of left lower limb (principal); I10 Essential (primary) hypertension; E11.9 Type 2 diabetes mellitus without complications; E78.5 Hyperlipidemia, unspecified
CPT/HCPCS: 99283